=== PATIENT | male | born 1975 | race Caucasian/White ===

== ENCOUNTER 2016-06-10 14:58 | Emergency (ER) | payer OTHER ==
[~2016-06-10] VITALS: Ht 188 cm; Wt 147.0 kg
[~2016-06-10 14:58] MED LIST: CPR500T PO
[2016-06-10] MEDS ORDERED: TETANUS,DIPTH,PERTUSS P/F (BOOSTRIX) 0.5 ML VIAL IM ONE (15:30)
[2016-06-10] MEDS ORDERED: AMOX-358 PO (15:35)
--- NOTE | 2016-06-10 15:37 | ED Integumentary General ---
General Chief Complaint: Bite-Animal/Human/Insect Stated Complaint: CAT BITE Nursing Triage Note: TO ROOM 05 VIA AMB WITH COMPLAINTS OF CAT BITE TO LEFT INDEX FINGER WITH CAT SCRATCHES ON BILAT HANDS. CAT WAS HIS INLAWS ET NOT VACCINATED. Source: patient Exam Limitations: no limitations History of Present Illness Time seen by provider: 15:33 Initial Comments Patient was trying to get his cat out of his parents garage when the cat bit him on the left index finger. Cat also scratched his right palm. No other injury. He complains of pain and swelling to the dorsum of the right index proximal phalanx Allergies and Home Medications Allergies Coded Allergies: No Known Allergies (Unverified Allergy, Mild, 03/02/09) Home Medications Amoxicillin/Potassium Clav 1 Each Tablet #10 1 EACH PO BID Prescribed by: SUE HADDAD on 06/10/16 5595 Constitutional: no symptoms reported Respiratory: no symptoms reported Skin: see HPI Past [id number]-[id number] Hx Patient Social History Alcohol Use: Denies Use Recreational Drug Use: No Smoking Status: Never a Smoker Recent Foreign Travel: No Contact w/Someone Who Travel: No Recent Infectious Disease Expo: No Recent Hopitalizations: No Physical Abuse Screen: No Sexual Abuse: No Immunizations Up To Date Tetanus Booster (TDap): More than 5yrs Surgeries Surgeries: Tonsillectomy Respiratory Hx Respiratory Disorders: No Cardiovascular Hx Cardiac Disorders: Yes Cardiac Disorders: Hypertension Neurological Hx Neurological Disorders: No Genitourinary Hx Genitourinary Disorders: No Gastrointestinal Hx Gastrointestinal Disorders: No Musculoskeletal Hx Musculoskeletal Disorders: No Endocrine Hx Endocrine Disorders: No HEENT HX ENT Disorders: No Cancer Hx Cancer: No Psychosocial Hx Psychiatric Problems: No Reviewed Nursing Assessment Reviewed/Agree w Nursing PMH: Yes Physical Exam Vital Signs Vital Sign - Last 12Hours 06/10/16 15:21 Temp 97.6 Pulse 107 Resp 18 B/P 135/90 Pulse Ox 97 Capillary Refill : Less Than 3 Seconds General Appearance: WD/WN no apparent distress obese Cardiovascular: regular rate, rhythm Respiratory: no respiratory distress Extremities: other (there are 2 puncture wounds to the dorsal aspect proximal phalanx of the left index finger, it is slightly swollen and red, there is no proximal streaking.) Skin: normal color Progress/Results/Core Measures Results/Orders My Orders Orders-SUE HADDAD MD Dipht,Pertuss(Acell),Tet Adult (Boostrix (06/10/16 15:30) Finger(S) (06/10/16 15:30) Vital Signs/I&O Vital Sign - Last 12Hours 06/10/16 15:21 Temp 97.6 Pulse 107 Resp 18 B/P 135/90 Pulse Ox 97 Blood Pressure Mean: 105 Diagnostic Imaging Comments X-ray shows nothing acute Departure Communication Progress Notes Stressed the need for rest and elevation and wound check in 48 hours.. Impression Impression: Primary Impression: cat bite left index finger Disposition: HOME, SELF-CARE Condition: Stable Departure-Patient Inst. Decision time for Depature: 15:57 Referrals: PÉREZ CASTORENA MD (PCP/Family) Primary Care Physician Patient Instructions: Animal Bites (DC) Add. Discharge Instructions: Keep hand elevated as much as possible the next few days. All discharge instructions reviewed with patient and/or family. Voiced understanding. Scripts Amoxicillin/Potassium Clav (Augmentin 875-125 Tablet)1 Each Tablet1 Each PO BID #10 TAB Prov:SUE HADDAD MD 06/10/16 SUE HADDAD MD Jun 10, 2016 15:37
--- NOTE | 2016-06-10 15:55 | Diagnostic Imaging Report ---
EXAMINATION: Three views of the left index finger. INDICATION: Cat-bite with laceration. FINDINGS: There is soft tissue swelling along the proximal aspect of the index finger with no radiopaque foreign body. No fracture or dislocation. The joint alignment is satisfactory. IMPRESSION: No osseous abnormality. Dictated by: Dictated on workstation # [id number]
[2016-06-10 16:12] VITALS: BP 130/60
== END 2016-06-10 16:12 | disposition home or self-care (01) ==
LOC: EDUNIT# 14:58 → ER 15:01
DX: S61.251A Open bite of left index finger without damage to nail, initial encounter (principal); S60.512A Abrasion of left hand, initial encounter; W55.01XA Bitten by cat, initial encounter; W55.03XA Scratched by cat, initial encounter; Y92.015 Private garage of single-family (private) house as the place of occurrence of the external cause; Y99.8 Other external cause status
CPT/HCPCS: 73140; 90471; 90715